=== PATIENT | female | born 1935 | race Caucasian/White ===

== ENCOUNTER 2017-12-15 10:35 | Emergency (ER) | payer OTHER ==
[~2017-12-15] VITALS: Ht 149.9 cm; Wt 49.8 kg
[~2017-12-15 10:35] MED LIST: AMLODIPINE BESYL5 MG PO; BENICAR40 MG PO; GLIPIZIDE5 MG PO; METFORMIN HCL500 MG PO; METOPROLOL SUC200 MG PO; OMEPRAZOLE40 M1 PO; PRAVACHOL80 MG PO; PREDNISONE5 MG PO
[2017-12-15] MEDS ORDERED: MIRALAX17 GM PO (14:04)
[2017-12-15] MEDS ORDERED: ADULT SUPPOSIT1 EACH PR (14:04)
[2017-12-15] MEDS ORDERED: COLACE100 MG PO (14:04)
[2017-12-15 14:20] VITALS: BP 116/74
== END 2017-12-15 14:22 | disposition home or self-care (01) ==
LOC: EME 10:35
DX: K56.41 Fecal impaction (principal); E11.9 Type 2 diabetes mellitus without complications; I10 Essential (primary) hypertension; M79.7 Fibromyalgia; Z79.84 Long term (current) use of oral hypoglycemic drugs; Z95.828 Presence of other vascular implants and grafts; Z90.710 Acquired absence of both cervix and uterus; Z90.49 Acquired absence of other specified parts of digestive tract; Z88.5 Allergy status to narcotic agent
CPT/HCPCS: 99281; 99284